=== PATIENT | male | born 1975 | race Caucasian/White ===

== ENCOUNTER 2018-07-25 18:16 | Emergency (ER) | payer SELFPAY ==
[~2018-07-25] VITALS: Ht 170.2 cm; Wt 70.0 kg
[2018-07-25 18:43] VITALS: Ht 170.2 cm; Wt 70.0 kg
[2018-07-25] MEDS ORDERED: SOD CHLORIDE 0.9% 1,000 ML IV STA (19:38)
[2018-07-25] MEDS ORDERED: LIDOCAINE 2%/EPI MPF (SDV) 20 ML VIAL INJ STA (19:38)
[2018-07-25] MEDS ORDERED: ONDANSETRON 4 MG INJ IV STA (19:38)
[2018-07-25] MEDS ORDERED: morphine 4 MG/ML VIAL IV STA (19:38)
[2018-07-25] MEDS ORDERED: DIPHTH/TET/ACEL PERTUSS (ADULT) 0.5 ML VIAL IM* ONE (20:00)
[2018-07-25] MEDS ORDERED: LIDOCAINE 2%/EPI (MDV) 20ML INJ INJ STA (20:13)
[2018-07-25] MEDS ORDERED: IOHEXOL 300MG/ML 150 ML BTL ONE (20:37)
[2018-07-25] MEDS ORDERED: SOD CHLORIDE 0.9% 100 ML ONE (20:37)
[2018-07-25] MEDS ORDERED: IBUP-1542 PO (22:04)
--- NOTE | 2018-07-25 22:08 | ERD ---
ER Documentation Chief Complaint Chief Complaint Laceration to forehead, left wrist pain fell from 12 feet high. No KO HPI Patient is a 43-year-old male with no medical problems who presents with a fall. 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 The patient fell from 14 feet while working. The patient has a laceration to the forehead and left wrist swelling. He was slightly confused. He had bilateral lower leg pain. He had back pain as well. He tried Advil 3 hours ago. He fell at 1540. Upon review of old medical records this is the patient's first visit to the emergency department. He does not currently have a primary doctor. ROS All systems reviewed and are negative except as per history of present illness. Medications Home Meds Active Scripts Ibuprofen* (Motrin*) 600 Mg Tab, 600 MG PO Q6H PRN for PAIN AND OR ELEVATED TEMP, #30 TAB Prov:RACHAEL PABON MD 07/25/18 Allergies Allergies: Coded Allergies: No Known Allergy (Unverified , 07/25/18) PMhx/Soc Medical and Surgical Hx: pt denies Medical Hx, pt denies Surgical Hx Hx Alcohol Use: No Hx Substance Use: No Hx Tobacco Use: No Smoking Status: Never smoker FmHx Family History: No diabetes Physical Exam Vitals Vital Signs Date Temp Pulse Resp B/P (MAP) Pulse Ox O2 O2 Flow FiO2 Time Delivery Rate 07/25/18 98.1 61 18 128/86 97 18:43 (100) Physical Exam Const: Moderate distress Head: Laceration of the mid forehead Eyes: Normal Conjunctiva ENT: Normal External Ears, Nose and Mouth. Neck: Full range of motion. No meningismus. Resp: Clear to auscultation bilaterally Cardio: Regular rate and rhythm, no murmurs Abd: Soft, non tender, non distended. Normal bowel sounds Skin: Jagged laceration to the mid forehead approximately 6 cm in length Back: No midline or flank tenderness Ext: Left wrist swelling with tenderness to palpation across the entire wrist Neur: Awake and alert Psych: Normal Mood and Affect Result Diagram: 07/25/18194607/25/181946 Results 24 hrs Laboratory Tests Test 07/25/18 19:47 White Blood Count 10.3 10^3/ul Red Blood Count 5.38 10^6/ul Hemoglobin 15.7 g/dl Hematocrit 47.1 % Mean Corpuscular Volume 87.5 fl Mean Corpuscular Hemoglobin 29.2 pg Mean Corpuscular Hemoglobin Concent 33.3 g/dl Red Cell Distribution Width 12.6 % Platelet Count 309 10^3/UL Mean Platelet Volume 8.7 fl Immature Granulocytes % 0.300 % Neutrophils % 69.0 % Lymphocytes % 21.7 % Monocytes % 6.8 % Eosinophils % 1.5 % Basophils % 0.7 % Nucleated Red Blood Cells % 0.0 /100WBC Immature Granulocytes # 0.030 10^3/ul Neutrophils # 7.1 10^3/ul Lymphocytes # 2.2 10^3/ul Monocytes # 0.7 10^3/ul Eosinophils # 0.2 10^3/ul Basophils # 0.1 10^3/ul Nucleated Red Blood Cells # 0.0 10^3/ul Prothrombin Time 12.9 Sec Prothrombin Time Ratio 1.0 INR International Normalized Ratio 0.96 Activated Partial Thromboplast Time 25.0 Sec Sodium Level 141 mmol/L Potassium Level 3.8 mmol/L Chloride Level 103 mmol/L Carbon Dioxide Level 29 mmol/L Anion Gap 9 Blood Urea Nitrogen 13 mg/dl Creatinine 0.76 mg/dl Est Glomerular Filtrat Rate mL/min > 60 mL/min Glucose Level 98 mg/dl Calcium Level 9.5 mg/dl Total Bilirubin 0.6 mg/dl Direct Bilirubin 0.00 mg/dl Indirect Bilirubin 0.6 mg/dl Aspartate Amino Transf (AST/SGOT) 24 IU/L Alanine Aminotransferase (ALT/SGPT) 27 IU/L Alkaline Phosphatase 74 IU/L Total Protein 7.8 g/dl Albumin 4.4 g/dl Globulin 3.40 g/dl Albumin/Globulin Ratio 1.29 Lipase 91 U/L Current Medications Medications Dose Sig/Debra Start Time Status Last (Trade) Ordered Route PRN Stop Time Admin Dose Reason Admin Sodium 1,000 ml @ Q1H STAT 07/25/18 DC 07/25/18 Chloride 1,000 mls/hr IV 19:38 20:09 07/25/18 20:37 Morphine 4 mg ONCE STAT 07/25/18 DC 07/25/18 Sulfate IV 19:38 20:07 (morphine) 07/25/18 19:41 Ondansetron 4 mg ONCE STAT 07/25/18 DC 07/25/18 HCl (Zofran IV 19:38 20:07 Inj) 07/25/18 19:41 Diphtheria/ 0.5 ml ONCE ONCE 07/25/18 DC 07/25/18 Tetanus/Acell IM* 20:00 20:09 Pertussis 07/25/18 20:01 (Adacel) Lidocaine/ 20 ml ONCE STAT 07/25/18 DC Epinephrine INJ 19:38 (Xylocaine 07/25/18 19:41 2%/ Epi Mpf(Sdv)) Lidocaine/ 20 ml ONCE STAT 07/25/18 DC Epinephrine INJ 20:13 (Xylocaine 07/25/18 20:14 2%/ Epi (Mdv) 20 ml) IV Flush 10 ml STK-MED 07/25/18 DC (NS 10 ml) ONCE .ROUTE 20:37 07/25/18 20:38 Sodium 100 ml @ ud STK-MED 07/25/18 DC Chloride ONCE .ROUTE 20:37 07/25/18 20:38 Iohexol 150 ml STK-MED 07/25/18 DC (Omnipaque ONCE .ROUTE 20:37 300mg/ ml) 07/25/18 20:38 Procedures/MDM CT brain read by radiology shows no trauma. CT cervical spine shows no fracture per radiology. CT chest/abdomen/pelvis shows no surgical or traumatic process per radiology. X-ray of the tibia is read by radiology bilaterally. X-ray Wrist 3V Interpreted by me: Scaphoid: Normal Bones: No fracture Joints: No dislocation Foreign body: None Splint Note Type: Volar splint Location: Left wrist Indication: Sprain versus fracture Splint Assessment: Neurovascularly intact post splint placement with good fit. Laceration Repair by me: Anesthesia: 1% lidocaine with epinephrine locally Location: Forehead Tendon/Joint/Nerves: No injury Foreign body: None detected after copious irrigation and exploration Technique: Simple Interrupted Sutures Complexity: No subcutaneous sutures/mucosal repair/edge excision Post Closure Length: 6 cm Patient's bleeding was easily controlled in the department and there is no indication of anemia. No evidence of compartment syndrome, neurologic injury, vascular injury, open joint, tendon laceration, or foreign body. Patient is appropriate for outpatient follow up. 48 hour wound check. Scar minimization instructions given. Patient has no obvious serious traumatic process after mustafa scan. I was concerned however given the height of the fall. Critical Care: Time: 35 minutes excluding all billable procedures. Treatments/Evaluations: Close monitoring and treatment of unstable vital signs, cardiorespiratory, and neurologic status, while maintaining tight balance of fluid, respiratory, and cardiac interventions. Departure Diagnosis: Primary Impression: Laceration Additional Impressions: Wrist sprain Encounter type: initial encounter Laterality: left Qualified Codes: S63.502A - Unspecified sprain of left wrist, initial encounter Concussion Encounter type: initial encounter Loss of consciousness presence/duration: with LOC of 30 min or less Qualified Codes: S06.0X1A - Concussion with loss of consciousness of 30 minutes or less, initial encounter Fall Encounter type: initial encounter Qualified Codes: W19.XXXA - Unspecified fall, initial encounter Condition: Fair Patient Instructions: Concussion, Laceration, Face (Suture Or Tape) [facility] Usted se gomez hecho un examen mdico de control que le indica que no est en lan condicin que requiera tratamiento urgente en el Departamento de Emergencia. Un estudio ms profundo y el tratamiento de villanueva condicin pueden esperar sin ningn riesgo hasta que usted sea atendida/o en el consultorio de villanueva mdico o lan clnica. Es responsabilidad suya arreglar lan steve para el seguimiento del christiano. MANEJO DE CONDICIONES NO URGENTES EN EL FUTURO 1) Si usted tiene un mdico de atencin primaria: Usted debera llamar a villanueva mdico de atencin primaria antes de venir al departamento de emergencia. Despus de las horas de consultorio, villanueva doctor o villanueva asociado/a est disponible por telfono. El mdico o enfermero de martha en el servicio telefnico puede asesorarle por clarissa medio para atender el problema, o christiano contrario se puede programar lan steve. 2) Si usted no tiene un mdico de atencin primaria: Llame al mdico o clnica de referencia que aparece abajo wilda las horas de consultorio para hacer lan steve para que le vean. CLINICAS: [facility] [phone] [facility] [phone] [facility] [phone] [facility] [phone] [place] [id number] [phone] [place] [id number] [phone] Additional Instructions: Wound check 2 days. Suture removal 7-10 days. RACHAEL PABON MD Jul 25, 2018 22:08
[2018-07-25 22:53] VITALS: BP 139/88; PULSE 55; RESP 13
== END 2018-07-25 22:53 | disposition home or self-care (01) ==
LOC: FTE 18:16 → E/R 22:53
DX: S01.81XA Laceration without foreign body of other part of head, initial encounter (principal); S63.502A Unspecified sprain of left wrist, initial encounter; S06.0X1A Concussion with loss of consciousness of 30 minutes or less, initial encounter; R40.2142 Coma scale, eyes open, spontaneous, at arrival to emergency department; R40.2252 Coma scale, best verbal response, oriented, at arrival to emergency department; R40.2362 Coma scale, best motor response, obeys commands, at arrival to emergency department; M79.604 Pain in right leg; W17.89XA Other fall from one level to another, initial encounter; Y92.89 Other specified places as the place of occurrence of the external cause; Z23 Encounter for immunization
CPT/HCPCS: 12014; 29125; 36415; 70450; 71260; 72125; 73110; 73590; 74177; 80053; 83690; 85025; 85610; 85730; 90471; 90715; 96361; 96374; 96375; 99285; J2270; J2405; J7030; Q9967

== ENCOUNTER 2018-08-01 11:14 | Emergency (ER) | payer SELFPAY ==
[~2018-08-01] VITALS: Ht 167.6 cm; Wt 92.4 kg
[~2018-08-01 11:14] MED LIST: IBUP-1542 PO
[2018-08-01 11:39] VITALS: BP 128/77; PULSE 57; RESP 18; Ht 167.6 cm; Wt 92.4 kg
[2018-08-01] MEDS ORDERED: IBUP-1542 PO (13:46)
--- NOTE | 2018-08-01 13:48 | ERD ---
ER Documentation Chief Complaint Chief Complaint suture removal on forehead [facility] ED 3 patient. 43-year-old male presents for evaluation for suture removal on his forehead. 7 days ago he fell down the stairs. He sustained a head injury, neck injury, chest injury. He additionally has complaints of left wrist pain since falling. Is in her left wrist Velcro brace. Review of the record shows no wrist x-ray. There is restricted range of motion due to pain but no fevers, redness, vomiting, additional symptoms. ROS All systems reviewed and are negative except as per history of present illness. Medications Home Meds Active Scripts Ibuprofen* (Motrin*) 600 Mg Tab, 600 MG PO Q6, #20 TAB Prov:PETR TRAVIS MD 08/01/18 Ibuprofen* (Motrin*) 600 Mg Tab, 600 MG PO Q6H PRN for PAIN AND OR ELEVATED TEMP, #30 TAB Prov:RACHAEL PABON MD 07/25/18 Allergies Allergies: Coded Allergies: No Known Allergy (Unverified , 07/25/18) PMhx/Soc Hx Alcohol Use: No Hx Substance Use: No Hx Tobacco Use: No FmHx Family History: No diabetes, No coronary disease, No other Physical Exam Vitals Vital Signs Date Temp Pulse Resp B/P (MAP) Pulse Ox O2 O2 Flow FiO2 Time Delivery Rate 08/01/18 97.5 57 18 128/77 96 11:39 (94) Physical Exam Const: No acute distress Head: Atraumatic except for healing forehead laceration with dried scab. Sutures intact. No erythema, bleeding or discharge. Eyes: Normal Conjunctiva ENT: Normal External Ears, Nose and Mouth. Neck: Full range of motion. No meningismus. Resp: Clear to auscultation bilaterally Cardio: Regular rate and rhythm, no murmurs Abd: Soft, non tender, non distended. Normal bowel sounds Skin: No petechiae or rashes Back: No midline or flank tenderness Ext: No cyanosis, or edema tenderness and swelling of left wrist joint without deformities, restricted range of motion weakness. And is no snuffbox tenderness. Neur: Awake and alert Psych: Normal Mood and Affect Procedures/MDM X-ray left wrist 3V Interpreted by me: Scaphoid: Normal Bones: No fracture Joints: No dislocation Foreign body: None. [id number] left wrist x-rays 7 days status post injury. Patient presents with satisfactory healing laceration. Sutures removed without complications but is no signs of infection, additional complications. His signs and symptoms of left wrist sprain with follow-up x-ray at 7 days read as normal. He is replaced in his Velcro brace. We discharged home with continued ibuprofen, primary care and orthopedic follow-up for persistent pain to evaluate for ligament injury. Return sooner for fevers, redness, new worsening symptoms. The patient was stable with no new complaints during the ER course. Clinically, there is no current evidence to suggest meningitis, sepsis, acute abdomen, pneumonia, stroke, acute coronary syndrome, pulmonary embolism, aortic dissection or any other emergent condition appearing to require further evaluation or hospitalization. Patient counseled regarding my diagnostic impression and care plan. Prior to discharge all questions answered. Pt agrees with treatment plan and understands strict return precautions. Pt is instructed to follow up with primary care provider within 24-48 hours. Precautionary instructions provided including instructions to return to the ER if not improving or for any worsening or changing symptoms or concerns. Departure Diagnosis: Primary Impression: Left wrist sprain Additional Impression: Visit for suture removal Patient Instructions: Suture Removal, No Complication, Wrist Sprain Referrals: SCOUT BRUMFIELD MD Additional Instructions: X-ray normal. Va al villanueva doctor/ specialista para mas evaluacon en el proximo semana. posiblemente necesita autorizado de villanueva doctor primario para specialista. Regresa para fiebre, o mas o nueva simptomas. PETR TRAVIS MD Aug 01, 2018 13:48
== END 2018-08-01 14:08 | disposition home or self-care (01) ==
LOC: E/R 11:14
DX: S63.502A Unspecified sprain of left wrist, initial encounter (principal); W10.9XXA Fall (on) (from) unspecified stairs and steps, initial encounter; Y92.9 Unspecified place or not applicable; Z48.02 Encounter for removal of sutures

== ENCOUNTER 2018-08-08 18:24 | Emergency (ER) | payer SELFPAY ==
[~2018-08-08] VITALS: Ht 167.6 cm; Wt 92.7 kg
[2018-08-08 18:39] VITALS: BP 123/70; PULSE 72; RESP 19; Ht 167.6 cm; Wt 92.7 kg
--- NOTE | 2018-08-08 19:41 | ERD ---
ER Documentation Chief Complaint Chief Complaint SUTURE REMOVAL; SUTURE PLACED IN 1WK AGO ON FOREHEAD HPI 43-year-old male no significant past medical history presents for suture removal. He had laceration repair of his forehead about 2 weeks ago. He states that he had sutures removed however there is one left. Denies fevers or chills. No modifying factors noted. ROS All systems reviewed and are negative except as per history of present illness. Medications Home Meds Active Scripts Ibuprofen* (Motrin*) 600 Mg Tab, 600 MG PO Q6, #20 TAB Prov:PETR TRAVIS MD 08/01/18 Ibuprofen* (Motrin*) 600 Mg Tab, 600 MG PO Q6H PRN for PAIN AND OR ELEVATED TEMP, #30 TAB Prov:RACHAEL PABON MD 07/25/18 Allergies Allergies: Coded Allergies: No Known Allergy (Unverified , 07/25/18) PMhx/Soc Medical and Surgical Hx: pt denies Medical Hx History of Surgery: Yes (Abdominal surgery as a child) Hx Alcohol Use: No Hx Substance Use: No Hx Tobacco Use: No FmHx Family History: No coronary disease Physical Exam Vitals Vital Signs Date Temp Pulse Resp B/P (MAP) Pulse Ox O2 O2 Flow FiO2 Time Delivery Rate 08/08/18 97.3 72 19 123/70 98 18:39 (87) Physical Exam Const: No acute distress Resp: Clear to auscultation bilaterally Cardio: Regular rate and rhythm, no murmurs Skin: Suture noted over the forehead, clean dry intact Ext: No cyanosis, or edema Neur: Awake and alert Psych: Normal Mood and Affect Procedures/MDM Suture Removal by me: Sutures removed with tweezers and scissors without incident. Wound shows no evidence of infection, foreign body, neurologic injury, vascular injury, open joint or tendon laceration. Patient to follow up PRN. Medical Decision Making: Patient presents for suture removal. Patient appeared well on physical exam. Suture was removed from the forehead, see procedure note above Patient advised to follow up with PCP in 1-2 days. Patient advised to return to ED for new or worsening symptoms. Patient stable on discharge from the ED. Disclaimer: Inadvertent spelling and grammatical errors are likely due to EHR/dictation software use and do not reflect on the overall quality of patient care. Also, please note that the electronic time recorded on this note does not necessarily reflect the actual time of the patient encounter. Departure Diagnosis: Primary Impression: Encounter for removal of sutures Condition: Fair Patient Instructions: Suture Removal, No Complication Referrals: [facility] YOU HAVE RECEIVED A MEDICAL SCREENING EXAM AND THE RESULTS INDICATE THAT YOU DO NOT HAVE A CONDITION THAT REQUIRES URGENT TREATMENT IN THE EMERGENCY DEPARTMENT. FURTHER EVALUATION AND TREATMENT OF YOUR CONDITION CAN WAIT UNTIL YOU ARE SEEN IN YOUR DOCTORS OFFICE WITHIN THE NEXT 1-2 DAYS. IT IS YOUR RESPONSIBILITY TO MAKE AN APPOINTMENT FOR FOLOW-UP CARE. IF YOU HAVE A PRIMARY DOCTOR --you should call your primary doctor and schedule an appointment IF YOU DO NOT HAVE A PRIMARY DOCTOR YOU CAN CALL OUR PHYSICIAN REFERRAL HOTLINE AT IF YOU CAN NOT AFFORD TO SEE A PHYSICIAN YOU CAN CHOSE FROM THE FOLLOWING [facility] [address] [facility] [address] [facility] [address] [facility] [address] [facility] [address] [facility] [facility]. [address] Additional Instructions: Llame al doctor MAANA y jadiel lan LOLI PARA DENTRO DE 1-2 LOPEZ.Dgale a la secretaria que nosotros le instruimos hacer esta loli.Avise o llame si villanueva condicin se empeora antes de la loli. Regresa aqui si peor o no mejor. ELSIE KATHLEEN DO Aug 08, 2018 19:41
== END 2018-08-08 19:41 | disposition home or self-care (01) ==
LOC: E/R 18:24
DX: Z48.02 Encounter for removal of sutures (principal)
CPT/HCPCS: 99281